=== PATIENT | female | born 2000 | race Caucasian/White ===

== ENCOUNTER 2022-06-02 22:23 | Emergency (ER) | payer OTHER ==
[~2022-06-02] VITALS: Ht 160 cm; Wt 81.8 kg
[~2022-06-02 22:23] MED LIST: ELIQUIS 5MG PO; PERCOCET 325 MG1 TA2 PO
[2022-06-02 22:33] VITALS: TEMP 99.2
[2022-06-02 23:11] LABS: BASO % 0.5 % (0.0-2.0); EOS # 0.1 K/mm3 (0.0-0.7); EOS % 0.7 % (0.0-4.0); GRAN # 4.6 K/mm3 (1.4-6.5); GRAN % 57.6 % (42.2-75.2); HEMOGLOBIN 12.3 g/dl (12.5-16.0); LYMPH # 2.5 K/mm3 (1.2-3.4); LYMPH % 30.6 % (20.0-51.0); MEAN CELL VOLUME 79 fl (80.0-100.0); MEAN CORPUSCULAR HEMOGLOBIN 27 pg (27-31); MEAN CORPUSCULAR HGB CONC 34 g/dl (33.0-37.0); MEAN PLATELET VOLUME 9.1 fl (7.4-10.4); MONO # 0.8 K/mm3 (0.1-0.6); MONO % 10.1 % (1.7-9.3); PLATELET COUNT 317 K/mm3 (130-400); RED BLOOD COUNT 4.59 M/mm3 (4.10-5.30); REDCELL DISTRIBUTION WIDTH-CV 11.5 % (11.5-14.5)
[2022-06-02 23:13] LABS: HEMATOCRIT 36.1 % (37.0-47.0)
[2022-06-02 23:22] LABS: ALBUMIN 3.1 gm/dL (3.5-5.0); BILIRUBIN,TOTAL 0.4 mg/dL (0.2-1.2); CALCIUM 9.1 mg/dL (8.4-10.2); CREATININE, serum 0.79 mg/dL (0.57-1.11); POTASSIUM 3.7 mmol/L (3.5-4.5); TOTAL PROTEIN 7.1 gm/dL (6.2-8.1)
[2022-06-03] VITALS: BP 111/64; PULSE 104
[2022-06-04] MEDS ORDERED: ATIVAN 0.50.5 MG/TAB PO (12:12)
== END 2022-06-03 00:20 | disposition home or self-care (01) ==
LOC: COL.ER 22:23
PROVIDERS: Personal Emergency Response Attendant
DX: I26.99 Other pulmonary embolism without acute cor pulmonale (principal)

== ENCOUNTER 2022-06-04 09:09 | Emergency (ER) | payer OTHER ==
[~2022-06-04] VITALS: Ht 160 cm; Wt 82.3 kg
[2022-06-04 09:16] VITALS: TEMP 100.1
[2022-06-04 10:31] LABS: ALBUMIN 3.4 gm/dL (3.5-5.0); CALCIUM 9.3 mg/dL (8.4-10.2); CREATININE, serum 0.76 mg/dL (0.57-1.11); POTASSIUM 3.8 mmol/L (3.5-4.5); TOTAL PROTEIN 7.2 gm/dL (6.2-8.1)
[2022-06-04 10:45] LABS: BASO % 0.5 % (0.0-2.0); EOS % 0.1 % (0.0-4.0); GRAN # 5.8 K/mm3 (1.4-6.5); GRAN % 74.2 % (42.2-75.2); HEMATOCRIT 37.1 % (37.0-47.0); HEMOGLOBIN 12.3 g/dl (12.5-16.0); LYMPH # 1.2 K/mm3 (1.2-3.4); LYMPH % 15.7 % (20.0-51.0); MEAN CELL VOLUME 80 fl (80.0-100.0); MEAN CORPUSCULAR HEMOGLOBIN 27 pg (27-31); MEAN CORPUSCULAR HGB CONC 33 g/dl (33.0-37.0); MONO # 0.7 K/mm3 (0.1-0.6); PLATELET COUNT 344 K/mm3 (130-400); RED BLOOD COUNT 4.63 M/mm3 (4.10-5.30); REDCELL DISTRIBUTION WIDTH-CV 11.4 % (11.5-14.5)
[2022-06-04 10:51] LABS: TROPONIN-I 0.016 ng/mL (0.00-0.033); TSH w REFLEX 1.793 uIU/mL (0.350-4.940)
[2022-06-04 11:10] LABS: COLLECTION METHOD CLEAN CATCH
[2022-06-04 11:45] LABS: URINE APPEARANCE Clear (CLEAR/HAZY); URINE BLOOD TRACE-INTACT (NEGATIVE); URINE COLOR Amber (YELLOW); URINE GLUCOSE Negative (NEGATIVE); URINE KETONE 4+ (NEGATIVE); URINE NITRATE Negative (NEGATIVE); URINE PROTEIN(semi-quant) Negative (NEGATIVE)
[2022-06-04 11:47] LABS: MUCOUS Present (NOT PRESENT); URINE BACTERIA Moderate /hpf (NONE SEEN)
[2022-06-04] MEDS ORDERED: ATIVAN 0.50.5 MG/TAB PO (12:12)
[2022-06-04 12:19] VITALS: BP 119/74; PULSE 103
== END 2022-06-04 12:22 | disposition home or self-care (01) ==
LOC: COL.ER 09:09
PROVIDERS: Emergency Medicine
DX: R06.02 Shortness of breath (principal); Z86.711 Personal history of pulmonary embolism; Z20.822 Contact with and (suspected) exposure to COVID-19; Z28.311 Partially vaccinated for COVID-19; Z79.01 Long term (current) use of anticoagulants
CPT/HCPCS: J2060; J7120

== ENCOUNTER → 2022-06-10 | Outpatient (CLI) | payer OTHER ==
[~2022-06-10] MED LIST changes: +AMOXICILLIN 8751 TAB PO; +ATIVAN 0.50.5 MG/TAB PO; +CLARITIN 1010 MG/TAB PO; +MOTRIN 800800 MG/TAB PO; +PREDNISONE20 MG PO
== END ==
LOC: COL.VAS 10:03 → COL.LAB 10:03
DX: I26.99 Other pulmonary embolism without acute cor pulmonale (principal)
CPT/HCPCS: Q9967

== ENCOUNTER → 2022-06-12 | Outpatient (CLI) | payer OTHER ==
[~2022-06-12] VITALS: Ht 160 cm; Wt 81.0 kg
[2022-06-12 12:42] VITALS: BP 115/77; PULSE 96; TEMP 98.7
[2022-06-12 13:50] VITALS: BP 144/78; PULSE 117
[2022-06-12 14:05] VITALS: BP 100/67; PULSE 102
[2022-06-12 14:15] VITALS: BP 110/75; PULSE 99
[2022-06-12 14:39] LABS: PLEURAL FLUID RBC 23000 /mm3 (0-0); PLEURAL FLUID WBC 6327 /mm3
[2022-06-12 14:41] LABS: PLEURAL FLUID APPEARANCE CLOUDY; PLEURAL FLUID COLOR AMBER
[2022-06-12 14:45] VITALS: BP 110/75; PULSE 106
[2022-06-13 10:44] LABS: BODY FLUID PH (AMS) 7 (())
== END ==
LOC: COL.RAD 12:01
PROVIDERS: Internal Medicine Pulmonary Disease
DX: J90 Pleural effusion, not elsewhere classified (principal); J18.9 Pneumonia, unspecified organism; I26.99 Other pulmonary embolism without acute cor pulmonale
CPT/HCPCS: 19804

== ENCOUNTER → 2023-10-01 | Outpatient (CLI) | payer OTHER ==
[~2023-10-01] MED LIST changes: +Albuterol 0.083% Neb Soln 2.5 MG/3 ML UD IH ONE; +Methacholine Vial A (Clear Label Base-Cntrl) IH ONE; +Methacholine Vial B (Red Label) 0.0625 MG/ML 3 ML VIAL.NEB IH ONE
== END ==
LOC: COL.CARD 13:43
DX: R06.02 Shortness of breath (principal)
CPT/HCPCS: J7674